=== PATIENT | male | born 1960 | race American Indian/Alaskan Native ===

== ENCOUNTER 2020-03-26 09:29 | Emergency (ER) | payer MEDICARE ==
--- NOTE | 2020-03-26 13:39 | Emergency Department Report ---
ED General Adult HPI - General Chief complaint: Dyspnea/Respdistress Stated complaint: FLORA Time Seen by Provider: 03/26/20 12:48 Source: patient, EMS Mode of arrival: Stretcher Limitations: No Limitations - History of Present Illness Initial comments: The patient presents to the emergency department with a chief complaint of shortness of breath. Patient states he was 2 hours into his dialysis treatment when he became short of breath. Patient denies any chest pain with the shortness of breath. Patient has no other complaints -: Sudden Severity scale (0 -10): 0 Consistency: now resolved Improves with: none Worsens with: none Associated Symptoms: denies other symptoms Treatments Prior to Arrival: none - Related Data Allergies Allergy/AdvReac Type Severity Reaction Status Date / Time No Known Allergies Allergy Unverified 08/26/15 19:54 ED Review of Systems ROS: Stated complaint: FLORA Other details as noted in HPI Comment: All other systems reviewed and negative Constitutional: denies: chills, fever Eyes: denies: eye pain, eye discharge, vision change ENT: denies: ear pain, throat pain Respiratory: denies: cough, shortness of breath, wheezing Cardiovascular: denies: chest pain, palpitations Endocrine: no symptoms reported Gastrointestinal: denies: abdominal pain, nausea, diarrhea Genitourinary: denies: urgency, dysuria Musculoskeletal: denies: back pain, joint swelling, arthralgia Skin: denies: rash, lesions Neurological: denies: headache, weakness, paresthesias Psychiatric: denies: anxiety, depression Hematological/Lymphatic: denies: easy bleeding, easy bruising ED Past Medical Hx - Past Medical History Previous Medical History?: Yes Hx Renal Disease: Yes (Home Hemo Dialysis) - Surgical History Additional Surgical History: L arm fistula - Social History Smoking Status: Never Smoker Substance Use Type: Alcohol ED Physical Exam - General Limitations: No Limitations General appearance: alert, in no apparent distress - Head Head exam: Present: atraumatic, normocephalic - Eye Eye exam: Present: normal appearance, PERRL, EOMI - ENT ENT exam: Present: mucous membranes moist - Neck Neck exam: Present: normal inspection - Respiratory Respiratory exam: Present: normal lung sounds bilaterally. Absent: respiratory distress - Cardiovascular Cardiovascular Exam: Present: regular rate, normal rhythm. Absent: systolic murmur, diastolic murmur, rubs, gallop - GI/Abdominal GI/Abdominal exam: Present: soft, normal bowel sounds. Absent: distended, tenderness - Rectal Rectal exam: Present: deferred - Extremities Exam Extremities exam: Present: normal inspection - Back Exam Back exam: Present: normal inspection - Neurological Exam Neurological exam: Present: alert, oriented X3, CN II-XII intact. Absent: motor sensory deficit - Psychiatric Psychiatric exam: Present: normal affect, normal mood - Skin Skin exam: Present: warm, dry, intact, normal color. Absent: rash ED Course Vital Signs 03/26/20 13:21 Temperature 97.9 F Pulse Rate 70 Respiratory 16 Rate Blood Pressure 102/65 [Left] O2 Sat by Pulse 100 Oximetry ED Medical Decision Making - Lab Data Result diagrams: 03/26/20 13:36 03/26/20 13:36 Lab Results 03/26/20 03/26/20 Range/Units 13:36 13:36 WBC 7.4 (4.5-11.0) K/mm3 RBC 3.11 L (3.65-5.03) M/mm3 Hgb 10.2 L (11.8-15.2) gm/dl Hct 31.3 L (35.5-45.6) % MCV 101 H (84-94) fl MCH 33 H (28-32) pg MCHC 32 (32-34) % RDW 14.5 (13.2-15.2) % Plt Count 179 (140-440) K/mm3 Lymph % (Auto) Violin Tutor Gilchrist % (Auto) Violin Tutor Eos % (Auto) Violin Tutor Baso % (Auto) Violin Tutor Lymph # Violin Tutor Gilchrist # Violin Tutor Eos # Violin Tutor Baso # Violin Tutor Seg Neutrophils % Violin Tutor Seg Neutrophils # Violin Tutor Sodium 134 L (137-145) mmol/L Potassium 5.0 (3.6-5.0) mmol/L Chloride 98.4 (98-107) mmol/L Carbon Dioxide 20 L (22-30) mmol/L Anion Gap 21 mmol/L BUN 32 H (9-20) mg/dL Creatinine 8.9 H (0.8-1.5) mg/dL Estimated GFR 7 ml/min BUN/Creatinine Ratio 4 % Glucose 94 (75-100) mg/dL Calcium 9.3 (8.4-10.2) mg/dL Phosphorus 3.00 (2.5-4.5) mg/dL Magnesium 2.30 (1.7-2.3) mg/dL Total Bilirubin < 0.20 (0.1-1.2) mg/dL AST 14 (5-40) units/L ALT 10 (7-56) units/L Alkaline Phosphatase 100 (35-129) units/L NT-Pro-B Natriuret Pep 1871 H (0-900) pg/mL Total Protein 7.8 (6.3-8.2) g/dL Albumin 3.9 (3.9-5) g/dL Albumin/Globulin Ratio 1.0 % - Radiology Data Radiology results: report reviewed - Medical Decision Making Discussed results with the patient Patient states he feels a lot better Patient tells me this happened to him once before November and in December Critical care attestation.: If time is entered above; I have spent that time in minutes in the direct care of this critically ill patient, excluding procedure time. ED Disposition Clinical Impression: Shortness of breath Disposition: DC- TO HOME OR SELFCARE Is pt being admited?: No Does the pt Need Aspirin: No Condition: Stable Instructions: Dyspnea (ED) Additional Instructions: return if worse You were given information to follow-up for possible COVID testing Referrals: DERIAN HANEY [Other] - 3-5 Days Time of Disposition: 16:33
[2020-03-26 14:22] LABS: Hematocrit 31.3 % (35.5-45.6); Hemoglobin 10.2 gm/dl (11.8-15.2); Mean Corpuscular HGB Conc 32 % (32-34); Mean Corpuscular Volume 101 fl (84-94); Platelet Count 179 K/mm3 (140-440); Red Blood Count 3.11 M/mm3 (3.65-5.03); Red Cell Distribution Width 14.5 % (13.2-15.2)
[2020-03-26 14:42] LABS: Alanine Aminotransferase 10 units/L (7-56); Albumin 3.9 g/dL (3.9-5); BUN/Creatinine Ratio 4; Blood Urea Nitrogen 32 mg/dL (9-20); Calcium 9.3 mg/dL (8.4-10.2); Hemolysis Index 32
--- NOTE | 2020-03-26 15:00 | XRay Report ---
CHEST 1 VIEW 1340 INDICATION / CLINICAL INFORMATION: sob COMPARISON: 03/05/2015 FINDINGS: SUPPORT DEVICES: There is now a multilumen left subclavian central line tip in the area of the atrial caval junction. HEART / MEDIASTINUM: No significant abnormality. LUNGS / PLEURA: No significant pulmonary or pleural abnormality. No pneumothorax. ADDITIONAL FINDINGS: No significant additional findings. IMPRESSION: No significant acute abnormality Signer Name: Clive Aguilar MD Signed: 03/26/2020 2:56 PM Workstation Name: [id number]
[2020-03-26 16:41] VITALS: BP 110/60
== END 2020-03-26 16:38 | disposition home or self-care (01) ==
LOC: ED 09:29
DX: R06.02 Shortness of breath (principal)
CPT/HCPCS: 36415; 71045; 80053; 83735; 83880; 84100; 85025

== ENCOUNTER 2020-07-13 07:04 | Day surgery (SDC) | payer MEDICARE ==
[2020-07-13] MEDS ORDERED: HEPARIN/NS 5000 UNIT/500ML 1,000 ML IR ONE (10:09)
[2020-07-13] MEDS ORDERED: SODIUM CHLORIDE 0.9% 250ML 250 ML ONE (10:30)
[2020-07-13] MEDS: fentaNYL 100 MCG/2 ML INJ ONE ×4 (10:55→13:02)
[2020-07-13] MEDS: MIDAZOLAM 2 MG/2 ML INJ ONE ×4 (10:55→13:02)
[2020-07-13] MEDS: LIDOCAINE 1%/EPINEPHRINE 1:100,000 VIAL (20 ML) INFILTRATI ONE ×3 (10:57→13:04)
[2020-07-13] MEDS: HEPARIN 10,000 UNITS/10 ML VIAL ONE ×3 (11:08→12:35)
[2020-07-13] MEDS ORDERED: HEPARIN/NS 5000 UNIT/500ML 500 ML IR ONE (12:18)
--- NOTE | 2020-07-13 14:01 | Short Stay Summary ---
Short Stay Documentation Date of service: 07/13/20 Narrative H&P: See H&P - History H&P: obtained from office - Allergies and Medications Current Medications: Allergies No Known Allergies Allergy (Verified 07/13/20 07:27) Home Medications Medication Instructions Recorded Confirmed Last Taken Type Aspirin [Adult Aspirin] 81 mg PO DAILY 07/13/20 07/13/20 07/12/20 History Calcium Carbonate [Calcium 600MG 600 mg PO DAILY 07/13/20 07/13/20 07/12/20 History TAB] Cholecalciferol (Vitamin D3) 5,000 unit PO DAILY 07/13/20 07/13/20 07/12/20 History [Vitamin D3] Mv,Jayy,Min/Iron/Folic Acid/Lut 1 each PO DAILY 07/13/20 07/13/20 07/12/20 History [Complete Multi Tablet] - Brief post op/procedure progress note Date of procedure: 07/13/20 Pre-op diagnosis: Complications of Dialysis Post-op diagnosis: same Procedure: 1. Ultrasound Guided Access Right Brachial Vein 2. Ultrasound-guided access right common femoral vein 3. Angioplasty and Stent of Right Innominate Vein with 12 x 60 Fluency Stent Graft and 12 x 40 Conquest Balloon 4. Angioplasty and Stent of Right Subclavian Vein with 12 x 80 Fluency Stent Graft and 12 x 40 Conquest Balloon 5. Access Right Arm AV Fistula With 5 Sami Micropuncture Sheath Venous 6. Radiologic Supervision with Interpretation 7. Monitored Moderate Sedation (Total Anesthesia Time: 179 Minutes) Anesthesia: MAC, local Surgeon: ROXY WILSON Estimated blood loss: minimal Pathology: none Condition: stable - Disposition Condition at discharge: Good Disposition: DC-01 TO HOME OR SELFCARE Short Stay Discharge Plan Activity: other (No strenuous activity or heavy lifting with right arm for 24 ho urs) Wound: remove dressing (24 Hours) Follow up with: ROXY WILSON MD [Staff Physician] - 14 Days Prescriptions: HYDROcodone/APAP 7.5-325 [[place] 7.5/325] 1 each PO Q6HR PRN #30 tablet PRN Reason: Pain
--- NOTE | 2020-07-13 14:07 | Operative Report ---
Operative Report Operative Report: Date of Procedure: 07/13/2020 Pre-operative Diagnosis: Complications of Dialysis Access Post-operative Diagnosis: Same Procedure(s): 1. Ultrasound Guided Access Right Brachial Vein 2. Ultrasound-guided access right common femoral vein 3. Angioplasty and Stent of Right Innominate Vein with 12 x 60 Fluency Stent Graft and 12 x 40 Conquest Balloon 4. Angioplasty and Stent of Right Subclavian Vein with 12 x 80 Fluency Stent Graft and 12 x 40 Conquest Balloon 5. Access Right Arm AV Fistula With 5 Micronesian Micropuncture Sheath Venous 6. Radiologic Supervision with Interpretation 7. Monitored Moderate Sedation (Total Anesthesia Time: 179 Minutes) Surgeon: Davidson Klein M.D. Logging Crew Supervisor: None Anesthesia: Monitored Moderate Sedation/Local Total Anesthesia Time: 179 Minutes EBL: Minutes Counts: Correct Complications: None Condition: Stable Specimen: None Indication: The patient is a 60-year-old male with a history of end-stage renal disease who is currently on hemodialysis through a left internal jugular permacath. 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 He has severe right arm swelling and performs dialysis at home with self cannulation. He also has numbness of his right hand that is likely secondary to increased pressure near his brachial plexus. He is in need of a diagnostic fistulogram with central venogram and intervention to relieve the pressure and swelling. He has been given the risk, benefits, and alternative procedures and consented to the procedure. Description of Procedure: The patient was brought to the Nurse Practitioner Adult and laid in supine position. After timeout was performed his right arm and right groin were prepped and draped in normal sterile fashion. Ultrasound was used to identify the right brachial vein and the overlying skin and soft tissue was anesthetized lidocaine. A 21-gauge micropuncture needle was used with ultrasound guidance to enter the right brachial vein and the 0.018 micropuncture wire was advanced to the vein. The needle was removed and the micropuncture sheath was advanced into the vein. The wire and inner cannula were removed and a 0.035 Bentson wire was advanced to the vein. The micropuncture sheath was removed and exchanged for 5 Micronesian sheath by Seldinger technique. A Navicross catheter and the wire were advanced into the subclavian vein and then the 5 Micronesian sheath was exchanged for a 7 Micronesian 45 cm destination sheath by Seldinger technique. At this point the patient was systemically heparinized with 5000 units of heparin IV. I made attempts with various wires to traverse the occluded innominate vein without success so I decided to access the femoral vein. The right femoral vein was identified and patency was confirmed. The overlying skin and soft tissue was then anesthetized with lidocaine and a 21-gauge micropuncture needle was used with ultrasound guidance to enter the right femoral vein. A 0.018 micropuncture wire was advanced to the vein and the needle was removed. A micropuncture sheath was placed by Seldinger technique and the inner cannula and wire were removed. A 0.035 Bentson wire was advanced into the superior vena cava and a 6 Micronesian 65 cm destination sheath was advanced into the superior vena cava. Various combinations of catheters and wires were used however eventually a 0.014 Asahi Halbred Wire and 0.018 crossing catheter were used to cross the occluded innominate vein. The catheter and wire were advanced into the right internal jugular vein which was confirmed by venogram. There was an approximate 95% stenosis in the proximal internal jugular vein. I used a 5 x 150 Favian balloon and ballooned the area of stenosis within the internal jugular vein as well as the occlusion of the innominate vein. I was then able to advance a vertebral catheter from the subclavian vein into the internal jugular vein and advanced a Bentson wire through the catheter into the internal jugular vein. I then used a 6 to 10 mm Tulip snare and was able to advance a V 18 wire through the 0.018 crossing catheter into the Tulip snare from the groin access site. I then pulled this V 18 wire through the sheath and the brachial vein to "body floss" the patient. Once the patient was body flossed I used the 5 x 150 Favian balloon to predilate the stenosis in the innominate vein extending into the subclavian vein. I then advanced a 12 x 60 Fluency Stent Graft into the innominate vein extending to the proximal subclavian vein and then postdilated with a 12 x 40 conquest balloon. I was unable to identify where the confluence of the cephalic arch joined the subclavian vein so I used lidocaine to anesthetize the skin overlying the arteriovenous fistula in the right arm and then used a 21-gauge micropuncture needle to access the fistula towards the venous outflow. I advanced a 0.018 micropuncture wire and after removing the needle advanced a 5 Micronesian micropuncture sheath. I removed the wire and inner cannula and performed a venogram to identify the confluence. I then extended the initial stent graft placement with a 12 x 80 Fluency Stent Graft which extended through the subclavian vein just proximal to the confluence of the cephalic arch. I postdilated this with a 12 x 40 conquest balloon. This resulted in approximately 20% residual stenosis within the innominate vein and less than 15% residual stenosis in the subclavian vein with brisk flow of contrast throughout the central venous system. At this point I removed all balloons and wires and the sheath within the groin and the brachial vein were removed and manual pressure was held to achieve hemostasis. I then remove the micropuncture sheath in the fistula and manual pressure was held to achieve hemostasis. Once hemostasis was achieved sterile dressings were applied to each entry site and the patient was transported to the recovery area in stable condition.
[2020-07-13 14:52] VITALS: BP 145/65
== END 2020-07-13 15:15 | disposition home or self-care (01) ==
LOC: CATHLABREC 07:04
PROVIDERS: ATTEND Surgery Vascular Surgery
DX: T82.898A Other specified complication of vascular prosthetic devices, implants and grafts, initial encounter (principal); N18.6 End stage renal disease; I12.0 Hypertensive chronic kidney disease with stage 5 chronic kidney disease or end stage renal disease; M19.90 Unspecified osteoarthritis, unspecified site; Z98.890 Other specified postprocedural states; Z79.899 Other long term (current) drug therapy; Z79.82 Long term (current) use of aspirin; Y82.8 Other medical devices associated with adverse incidents; Y92.89 Other specified places as the place of occurrence of the external cause
CPT/HCPCS: 36415; 36903; 76937; 84132; 99156; 99157; C1725; C1769; C1773; C1874; C1887; J1644; J2250; J3010; J7050; Q9967

== ENCOUNTER 2022-02-24 07:27 | Outpatient (CLI) | payer MEDICARE ==
--- NOTE | 2022-02-24 10:50 | Nuclear Medicine Report ---
APPROVED REPORT Exam: Nuclear Stress Test Indication: Chest pain, Abnormal EKG Patient Location: [facility] Room #: stress lab 2 Ht: 5 ft 8 in Wt: 200 lbs BSA: 2.04 m2 HR: 70 bpmBP: 91/39 mmHgBMI: 30.40 Rhythm: SINUS RHYTHM Stress Test Details Stress Test: Exercise stress testing was performed using a Rigo protocol. HR Resting HR: 70 bpm Max HR Achieved: 135 bpm Max Heart Rate (APMHR): 161.777473 bpm Target HR (85% APMHR): 136.454079 bpm % of APMHR: 83.85 Recovery HR: 114 bpm BP Resting BP: 91/39 mmHg Max BP: 109/56 mmHg Recovery BP: 108/66 mmHg ECG Resting ECG: SINUS RHYTHM Stress ECG: SINUS TACHYCARDIA Clinical Stress Symptoms: None Exercise duration: 9 min 00 sec Exercise capacity: 10.3 METs Overall Exercise Capacity for Age: Normal NM EXAM: Myocardial Perfusion REST/STRESS Imaging Protocol: Rest Tc-99m/Stress Tc-99m 1 day Resting Data Rest SPECT myocardial perfusion imaging was performed in supine position 45 minutes following the intravenous injection of 10 mCi of Tc-99m Myoview. Time of rest injection: 0815 Exercise Stress At peak stress, the patient was injected intravenously with 28mCi of Tc-99m Myoview. Time of stress injection: 0955 Gated Stress SPECT was performed 15 minutes after stress injection. The images were gated to evaluate regional wall motion and calculate left ventricular ejection fraction. Study Quality Study: excellent Lung Uptake: Normal Study Data TID = 0.96. Perfusion Wall Motion The rest and stress images show normal left ventricular wall motion. Nuclear Conclusion ECG Findings: negative for ischemia Clinical Findings: negative for ischemia Nuclear Findings: negative for ischemia Exercise Capacity: normal Left Ventricular Function: normal Risk Study: low Negative treadmill EKG. Good exercise capacity 9 minutes Rigo protocol. Patient achieved 85% of max predicted heart rate. No exaggerated blood pressure response to exercise. Normal myocardial perfusion no significant ischemia noted normal LV function.
== END 2022-02-24 07:28 | disposition home or self-care (01) ==
LOC: CARD 07:27
PROVIDERS: ATTEND Internal Medicine
DX: Z01.810 Encounter for preprocedural cardiovascular examination (principal); R00.0 Tachycardia, unspecified
CPT/HCPCS: 78452; 93017; A9502